=== PATIENT | female | born 1965 | race Caucasian/White ===

== ENCOUNTER 2024-07-15 05:41 | Observation (INO) ==
[~2024-07-15 05:41] MED LIST: Lidocaine 1% w EPI 1:200,000 SDV 30 ML VIAL ONE; Vancomycin 1,000 MG VIAL ONE
[2024-07-15] MEDS ORDERED: Tranexamic Acid 1 GM/100ML BAG 2,000 MG/200 ML BAG IV ONE (06:05)
[2024-07-15] MEDS ORDERED: ceFAZolin 2 GM PREMIX 2 GM/50 ML BAG ONE (06:05)
[2024-07-15] MEDS ORDERED: Phenylephrine 40 mcg/mL 10mL (400mcg) SYRINGE IV PUSH PRN ×2 (06:13)
[2024-07-15] MEDS ORDERED: Sodium Citrate/Citric Acid LIQ 15 ML UDC PO PRN (06:13)
[2024-07-15 06:19] LABS: Rapid COVID-19 Molecular Undetected (Undetected)
[2024-07-15] MEDS ORDERED: Midazolam 2 mg/2 ml VIAL 1 mg/ml 2 ml VIAL (2 mg) ONE ×2 (06:46→07:14)
[2024-07-15] MEDS ORDERED: fentaNYL 100 mcg/2 ml 50 MCG/ML VIAL ONE ×4 (06:46→10:03)
[2024-07-15] MEDS ORDERED: Lidocaine 2% PF 5 ML VIAL ONE (06:47)
[2024-07-15] MEDS ORDERED: Phenylephrine 40 mcg/mL 10mL (400mcg) SYRINGE ONE (06:47)
[2024-07-15] MEDS ORDERED: Glycopyrrolate IV 0.2 MG/ML 1 ML VIAL ONE (06:47)
[2024-07-15] MEDS ORDERED: Ondansetron 4 mg VIAL 2 MG/ML 2 ml VIAL ONE (06:47)
[2024-07-15] MEDS ORDERED: ROPIVACAINE 5 MG/ML 30 ML BTL (0.5%) ONE (07:14)
[2024-07-15] MEDS ORDERED: Rocuronium 50 mg VIAL 10 mg/ml 5 ml VIAL (50 mg) ONE (07:28)
[2024-07-15] MEDS ORDERED: Dexamethasone IV 4 MG/ML VIAL 1 ml VIAL ONE (07:49)
[2024-07-15] MEDS ORDERED: Metoclopramide 5 MG/ML VIAL (10 mg) ONE (08:02)
[2024-07-15] MEDS ORDERED: KETAMINE HCL 10 MG/ML 20 ml VIAL (200 MG) ONE (08:03)
[2024-07-15] MEDS ORDERED: HYDROmorphone 1 MG/1 ML SYRINGE IV PRN (08:08)
[2024-07-15] MEDS ORDERED: Metoclopramide 5 MG/ML VIAL (10 mg) IV PRN (08:08)
[2024-07-15] MEDS ORDERED: fentaNYL 100 mcg/2 ml 50 MCG/ML VIAL IV PRN (08:08)
[2024-07-15] MEDS ORDERED: Naloxone 0.4 mg VIAL 0.4 mg/ml 1 ml VIAL IV PRN (08:08)
[2024-07-15] MEDS ORDERED: Ondansetron 4 mg VIAL 2 MG/ML 2 ml VIAL IV PRN ×2 (08:08→10:55)
[2024-07-15] MEDS ORDERED: HYDROmorphone 0.5 MG/0.5 ML SYRINGE ONE ×2 (08:19→09:54)
[2024-07-15] MEDS ORDERED: NS 0.45% 1000 ml BAG 1,000 ML IV SCH (09:00)
[2024-07-15] MEDS ORDERED: Lidocaine 1% VIAL 10 MG/ML 30 ML VIAL ONE (10:26)
[2024-07-15] MEDS ORDERED: Calcium Carb (TUMS) 500 mg CHEW TAB PO PRN (10:55)
[2024-07-15] MEDS ORDERED: Lactulose 30 ml UDC PO PRN (10:55)
[2024-07-15] MEDS ORDERED: Magnesium Hydroxide LIQ 30 ML UDC PO PRN (10:55)
[2024-07-15] MEDS ORDERED: Morphine 2 MG/ML SYRINGE IV PRN (10:55)
[2024-07-15] MEDS: Lactated Ringers 1000 ml BAG 1,000 ML IV SCH ×3 (13:01→13:08)
[2024-07-15] MEDS: Lactated Ringers 1000 ml BAG 1,000 ML IV ONE (13:07)
[2024-07-15] MEDS: OBEPIDURAL (200 ML) 200 ML EPIDURAL SCH (13:07)
[2024-07-15] MEDS: Scopolamine 1 mg/72hr PATCH TRANSDERM ONE (13:08)
[2024-07-15] MEDS: Buffered Lidocaine 1% SYRIN 1 ml INTRADERM ONE (13:08)
[2024-07-15] MEDS: ceFAZolin 2 GM PREMIX 2 GM/50 ML BAG IV SCH (16:04)
[2024-07-15] MEDS: Ondansetron ODT 4 mg TAB 4 MG TAB PO PRN (17:13)
[2024-07-15] MEDS: Magnesium Hydroxide LIQ 30 ML UDC PO SCH (21:33)
[2024-07-16 05:25] VITALS: BP 121/63
[2024-07-16] MEDS: Vitamin THERAPEUTIC TAB PO SCH (07:50)
[2024-07-16 08:45] LABS: Hematocrit 30.6 % (35-45); Hemoglobin 10.7 g/dL (11.5-14.3); Mean Platelet Volume 8.4 fL (7.5-11.2); Platelet Count 199 10^3/uL (150-450)
[2024-07-16 09:21] LABS: Creatinine, Serum 0.67 mg/dL (0.51-0.95); Potassium 3.7 mmol/L (3.5-5.0)
== END 2024-07-16 10:15 | disposition home or self-care (01) ==
LOC: OR 05:41 → SSU 05:41 → EDSTATUS 10:45
PROVIDERS: ADMIT Orthopaedic Surgery; ATTEND Orthopaedic Surgery

== ENCOUNTER 2024-07-24 08:56 | Observation (INO) ==
[2024-07-24 09:42] LABS: ABS Basophils 0.1 10^3/uL (0.0-0.1); ABS Eosinophils 0.3 10^3/uL (0.0-0.5); ABS Lymphocytes 1.5 10^3/uL (1.0-4.8); ABS Monocytes 0.6 10^3/uL (0.0-0.9); ABS Neutrophils 4.8 10^3/uL (1.5-7.6); Eosinophil % 3.8 %; Hematocrit 29.5 % (35-45); Hemoglobin 10.4 g/dL (11.5-14.3); Lymphocyte % 21.3 %; Mean Corpuscular Hemoglobin 31.9 pg (27-33); Mean Corpuscular Hgb Conc 35.4 g/dL (31-36); Mean Corpuscular Volume 90.1 fL (80-97); Mean Platelet Volume 7.5 fL (7.5-11.2); Platelet Count 551 10^3/uL (150-450); Red Blood Count 3.27 10^6/uL (3.63-4.92); Red Cell Distribution Width 12.7 % (12-17); White Blood Count 7.2 10^3/uL (3.8-11.8)
[2024-07-24 09:52] LABS: INR 1.13 (0.85-1.14)
[2024-07-24 10:23] LABS: Albumin 3.3 g/dL (3.2-5.2); Albumin/Globulin Ratio 1.5 (1-3); Calcium 8.9 mg/dL (8.6-10.3); Creatinine, Serum 0.57 mg/dL (0.51-0.95); Globulin 2.2 g/dL (2-4); Potassium 3.9 mmol/L (3.5-5.0); Total Protein 5.5 g/dL (6.4-8.9)
[2024-07-24 11:14] LABS: High Sensitivity Troponin 1 Hr 5 pg/mL (<15)
[2024-07-24] MEDS: Enoxaparin 80 MG/0.8 ML SYR SUBCUT ONE (14:15)
[2024-07-24] MEDS ORDERED: Sulfur Hexaflouride MICROSPHR 25 MG VIAL IV PRN (14:31)
[2024-07-24 15:27] LABS: HDL Cholesterol 55.5 mg/dL
[2024-07-25] MEDS: Enoxaparin 80 MG/0.8 ML SYR SUBCUT SCH (03:11)
[2024-07-25 05:52] LABS: ABS Basophils 0.1 10^3/uL (0.0-0.1); ABS Eosinophils 0.3 10^3/uL (0.0-0.5); ABS Lymphocytes 1.9 10^3/uL (1.0-4.8); ABS Monocytes 0.7 10^3/uL (0.0-0.9); ABS Neutrophils 4.9 10^3/uL (1.5-7.6); ABS Nucleated RBC 0.01 10^3/ul; Eosinophil % 3.8 %; Hematocrit 30.3 % (35-45); Hemoglobin 10.6 g/dL (11.5-14.3); Lymphocyte % 24.3 %; Mean Corpuscular Hemoglobin 31.4 pg (27-33); Mean Corpuscular Hgb Conc 34.8 g/dL (31-36); Mean Corpuscular Volume 90.1 fL (80-97); Mean Platelet Volume 7.8 fL (7.5-11.2); Nucleated Red Blood Cells % 0.1 %/100WBC (0.0-0.8); Platelet Count 581 10^3/uL (150-450); Red Blood Count 3.37 10^6/uL (3.63-4.92); Red Cell Distribution Width 12.8 % (12-17); White Blood Count 7.9 10^3/uL (3.8-11.8)
[2024-07-25 06:15] LABS: Calcium 8.7 mg/dL (8.6-10.3); Creatinine, Serum 0.55 mg/dL (0.51-0.95); Potassium 4.4 mmol/L (3.5-5.0); eGFR CKD-EPI 104.9 (>60)
[2024-07-25] MEDS: Iohexol 350 (CONTRAST) 500 ML MDV IV ONE (08:40)
[2024-07-25 14:48] VITALS: BP 142/94
== END 2024-07-25 15:16 | disposition home or self-care (01) ==
LOC: EDHOLD 08:56 → ED 08:56 → MEDTELE 16:48
PROVIDERS: ADMIT Internal Medicine; ATTEND Hospitalist